=== PATIENT | male | born 1940 | race Caucasian/White ===

== ENCOUNTER 2019-12-06 02:40 | Emergency (ER) | payer MEDICARE, BC ==
[~2019-12-06] VITALS: Ht 190.5 cm; Wt 115.4 kg
[2019-12-06] MEDS ORDERED: IV NORMAL SALINE 500ML 500 ML IV ONE (03:00)
--- NOTE | 2019-12-06 03:01 | PHYS DOC ---
General Adult EDM: Chief Complaint: ABDOMINAL PAIN HPI: HPI: 79-year-old male presents with right upper quadrant abdominal pain. The patient tells me that he started out having a sharp and burning periumbilical pain that has migrated over to the right side of the abdomen. It is now an aching sensation and a 9 out of 10. He denies fall or trauma. He tells me that he has had "gas problems" in the past that have brought him into the hospital. He denies having bowel obstruction. He denies nausea, vomiting, chest pain, shortness of breath. No fever or chills. He has a history of hypertension and cardiac stent. Review of Systems: Review of Systems: Constitutional: Denies fever or chills Eyes: Denies change in visual acuity HENT: Denies nasal congestion or sore throat Respiratory: Denies cough or shortness of breath Cardiovascular: Denies chest pain or edema GI: Right upper quadrant abdominal pain. Denies nausea, vomiting, bloody stools or diarrhea : Denies dysuria Musculoskeletal: Denies back pain or joint pain Integument: Denies rash Neurologic: Denies headache, focal weakness or sensory changes Endocrine: Denies polyuria or polydipsia Lymphatic: Denies swollen glands Psychiatric: Denies depression or anxiety Heart Score: Risk Factors: Risk Factors: DM, Current or recent (<one month) smoker, HTN, HLP, family history of CAD, obesity. Risk Scores: Score 0 - 3: 2.5% MACE over next 6 weeks - Discharge Home Score 4 - 6: 20.3% MACE over next 6 weeks - Admit for Clinical Observation Score 7 - 10: 72.7% MACE over next 6 weeks - Early Invasive Strategies Current Medications: Current Meds: Current Medications Medications (Trade) Dose Ordered Sig/Cami Start Time Stop Time Status Last Admin Dose Admin Sodium Chloride 500 ml @ 0 mls/hr 1X ONCE 12/06/19 03:00 12/06/19 03:01 UNV Physical Exam: PE: Constitutional: Well developed, well nourished, obese, no acute distress, non- toxic appearance. [] HENT: Normocephalic, atraumatic, bilateral external ears normal, oropharynx moist, no oral exudates, nose normal. [] Eyes: PERRLA, EOMI, conjunctiva normal, no discharge. [] Neck: Normal range of motion, no tenderness, supple, no stridor. [] Cardiovascular: Heart rate regular rhythm, no murmur [] Lungs & Thorax: Bilateral breath sounds clear to auscultation [] Abdomen: Bowel sounds normal, soft, right sided tenderness, no masses, no pulsatile masses. [] Skin: Warm, dry, no erythema, no rash. [] Back: No tenderness, no CVA tenderness. [] Extremities: No tenderness, no cyanosis, no clubbing, ROM intact, no edema. [] Neurologic: Alert and oriented X 3, normal motor function, normal sensory function, no focal deficits noted. [] Psychologic: Affect normal, judgement normal, mood normal. [] EKG: EKG: [] Radiology/Procedures: Radiology/Procedures: [] Impressions: CT abdomen and pelvis with contrast PQRS statement: CT scans at this facility use dose reduction including either automated exposure control, iterative reconstructions, and /or weight based radiation dosing via mA and kV modification when appropriate to reduce radiation dose to as low as reasonably achievable. HISTORY: 75 mL Omnipaque 300 intravenous contrast. HISTORY: Right lower quadrant abdominal pain. Abdomen findings: Coronary calcified plaque. Lung bases unremarkable. Chronic L5 spondylolysis. Lumbar scoliosis and disc disease with bulky disc osteophytes and facet spurring spinal canal and neural foraminal stenoses. Right hepatic lobe 1 cm cyst density 5 units image 12. There appears be mild groundglass edema surrounding the gallbladder and mild edematous wall thickening. There may be small gallstones of the gallbladder neck with density present. Mild bilateral perinephric edema. Adrenals, pancreas, spleen unremarkable. Sigmoid diverticulosis. No bowel obstruction. Appendix not visualized may be surgically absent or obscured by surrounding bowel loops. No abdominal fluid or adenopathy. Subacute or chronic right anterior sixth, seventh and eighth rib fractures with incomplete healing. 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 Bladder, rectum and bones are unremarkable. Enlargement of the prostate transverse diameter 6 cm. No pelvic fluid or adenopathy. IMPRESSION: 1. Distention of the gallbladder with edema of the gallbladder wall and mild surrounding pericholecystic edema raising suspicion of cholecystitis. 2. Subacute or chronic right anterior sixth, seventh and eighth rib fractures with incomplete healing. 3. Other incidental findings as described above. Electronically signed by: Yves Deal MD (12/06/2019 4:15 AM) [facility] DICTATED AND SIGNED BY: YVES DEAL MD DATE: 12/06/19 041 CC: NEYMAR MARQUES MD; LISANDRO HERRERA DO ~ Course & Med Decision Making: Course & Med Decision Making Pertinent Labs and Imaging studies reviewed. (See chart for details) The patient's labs are unremarkable. He does have some elevated liver enzymes. CT scan shows possible acute cholecystitis. I have ordered blood cultures and will treat the patient with Zosyn. His penicillin allergy was 30 years ago and it was a rash. The patient has gotten 75 mcg of fentanyl and 1 mg of Dilaudid for his pain. I have also given him saline bolus and Zofran. I talk with the patient about being transferred to a facility with GI and surgery. He is in agreement with going to [facility]. I spoke with Dr. Lee who has accepted the patient for transfer and admission. He will go by ambulance. [] Dragon Disclaimer: [place] Disclaimer: This electronic medical record was generated, in whole or in part, using a voice recognition dictation system. Departure Departure: Impression: Primary Impression: Cholecystitis Disposition: [facility] Admitting Physician: Hubert Lee Condition: STABLE Referrals: NEYMAR MARQUES MD (PCP) LISANDRO HERRERA DO Dec 06, 2019 03:01
[2019-12-06] MEDS ORDERED: ONDANSETRON PF 4 MG/2 ML VIAL. IVP ONE (03:15)
[2019-12-06 03:25] LABS: BASO % 0 % (0-3); EOS % 0 % (0-3); HEMATOCRIT 40.3 % (39.0-53.0); HEMOGLOBIN 13.2 g/dL (13.0-17.5); LYMPH # 0.5 x10^3/uL (1.0-4.8); LYMPH % 6 % (24-48); MEAN CORPUSCULAR HEMOGLOBIN 30 pg (25-35); MEAN CORPUSCULAR HGB CONC 33 g/dL (31-37); MEAN CORPUSCULAR VOLUME 90 fL (79-100); MONO # 1.3 x10^3/uL (0.0-1.1); MONO % 14 % (0-9); NEUT # 7.3 x10^3uL (1.8-7.7); NEUT % 80 % (31-73); PLATELET COUNT 111 x10^3/uL (140-400); RED BLOOD COUNT 4.47 x10^6/uL (4.30-5.70); RED CELL DISTRIBUTION WIDTH 13.9 % (11.5-14.5); WHITE BLOOD COUNT 9.2 x10^3/uL (4.0-11.0)
[2019-12-06] MEDS ORDERED: CONTRAST GIVEN. MC PRN (03:30)
[2019-12-06] MEDS ORDERED: IOHEXOL 300 MG/ML 75 ML VIAL. IV ONE (03:30)
[2019-12-06 03:41] LABS: CREATININE 1.1 mg/dL (0.7-1.3); GFR 64.9; POTASSIUM 4.1 mmol/L (3.5-5.1)
[2019-12-06 04:00] LABS: ALBUMIN 3.4 g/dL (3.4-5.0); ALBUMIN/GLOBULIN RATIO 1.1 (1.0-1.7); TOTAL BILIRUBIN 1.2 mg/dL (0.2-1.0); TOTAL PROTEIN 6.6 g/dL (6.4-8.2)
--- NOTE | 2019-12-06 04:18 | RAD ---
CT abdomen and pelvis with contrast PQRS statement: CT scans at this facility use dose reduction including either automated exposure control, iterative reconstructions, and /or weight based radiation dosing via mA and kV modification when appropriate to reduce radiation dose to as low as reasonably achievable. HISTORY: 75 mL Omnipaque 300 intravenous contrast. HISTORY: Right lower quadrant abdominal pain. Abdomen findings: Coronary calcified plaque. Lung bases unremarkable. Chronic L5 spondylolysis. Lumbar scoliosis and disc disease with bulky disc osteophytes and facet spurring spinal canal and neural foraminal stenoses. Right hepatic lobe 1 cm cyst density 5 units image 12. There appears be mild groundglass edema surrounding the gallbladder and mild edematous wall thickening. There may be small gallstones of the gallbladder neck with density present. Mild bilateral perinephric edema. Adrenals, pancreas, spleen unremarkable. Sigmoid diverticulosis. No bowel obstruction. Appendix not visualized may be surgically absent or obscured by surrounding bowel loops. No abdominal fluid or adenopathy. Subacute or chronic right anterior sixth, seventh and eighth rib fractures with incomplete healing. 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 Bladder, rectum and bones are unremarkable. Enlargement of the prostate transverse diameter 6 cm. No pelvic fluid or adenopathy. IMPRESSION: 1. Distention of the gallbladder with edema of the gallbladder wall and mild surrounding pericholecystic edema raising suspicion of cholecystitis. 2. Subacute or chronic right anterior sixth, seventh and eighth rib fractures with incomplete healing. 3. Other incidental findings as described above. Electronically signed by: César Deal MD (12/06/2019 4:15 AM) [facility]
[2019-12-06] MEDS ORDERED: HYDROmorphone PF 1 MG/ML DISP.SYRIN IVP ONE (04:30)
[2019-12-06] MEDS ORDERED: PIPERACILLIN/TAZOBACTAM 3.375 GM in IV NORMAL SALINE 50ML 50 ML IV ONE (05:15)
[2019-12-06 05:40] LABS: AMORPHOUS SEDIMENT,UR PRESENT /HPF; BACTERIA,URINE 0 /HPF (0-FEW); BILIRUBIN,URINE NEG (NEG); CLARITY,URINE CLOUDY; COLOR,URINE YELLOW; GLUCOSE,URINE NEG (NEG); NITRITE,URINE NEG (NEG); RBC,URINE 0 /HPF (0-2); SQUAMOUS EPITHELIAL CELL,UR OCC /LPF; UROBILINOGEN,URINE 0.2 mg/dL (0.2 mg/dL); WBC,URINE OCC /HPF (0-4)
[2019-12-06] MEDS ORDERED: PIPERACILLIN/TAZOBACTAM 3.375 GM VIAL IV ONE (05:55)
[2019-12-06] MEDS ORDERED: IV NORMAL SALINE 50ML 50 ML ONE (05:55)
[2019-12-06 06:11] VITALS: BP 137/66
== END 2019-12-06 08:05 | disposition short-term general hospital (02) ==
LOC: ER 02:40
DX: K81.9 Cholecystitis, unspecified (principal)
CPT/HCPCS: 36415; 74177; 80053; 81001; 85025; 96365; 96375; 99285; J1170; J2405; J2543; J3010; J7040; Q9967; 96361

== ENCOUNTER → 2020-01-23 | Outpatient (CLI) | payer MEDICARE, BC ==
--- NOTE | 2020-01-23 17:38 | RAD ---
Examination: Bilateral digital diagnostic mammogram. INDICATION: 79-year-old man with bilateral breast pain. COMPARISON: None. TECHNIQUE: CC and MLO views of both breasts were obtained with 2-D technique and reviewed with computer-aided detection. FINDINGS: The breast parenchyma is almost entirely fatty replaced. There is no mass, architectural distortion or suspicious calcification in either breast. The nipple areloar complex, skin, and visualized axilla are unremarkable. IMPRESSION: Negative bilateral digital diagnostic mammogram. No evidence of malignancy and no specific cause for bilateral breast pain identified. Recommend clinical management and follow-up. BI-RADS Category 1 Negative Electronically signed by: Madisyn Lane MD (01/23/2020 5:35 PM) [id number]
== END ==
LOC: MAMMO 13:25
PROVIDERS: ATTEND Family Medicine
DX: N64.4 Mastodynia (principal)
CPT/HCPCS: 77066

== ENCOUNTER → 2020-09-05 | Day surgery (SDC) | payer MEDICARE, BC ==
[~2020-09-05] MED LIST: ACETAMINOPHEN 500 MG TABLET PO PRN; ASPI-630 PO; BALANCED SALT IRRIG SOLN NO.2 500 ML IO ONE; BENZONATATE 100 MG CAPSULE. PO PRN; BRIMONIDINE 0.2% OPHTH SOLUTION 5ML BOTTLE. OD ONE; CEFUROXIME OPHTH 4 MG/0.4 ML SYRINGE. OD ONE; CHONDROIT-SOD-HYALURONATE KIT. OD ONE; IBUPROFEN 200 MG TABLET PO PRN; IPRATRPIUM/ALBUTEROL 0.5/2.5MG 3 ML NEBU. NEB PRN; IV RINGERS SOLUTION,LACTATED 1,000 ML IV SCH; LIDO/EPI IN BSS OPHTH 2.7 ML SYRINGE. OD ONE; LOSA100T14 PO; MIDAZOLAM HCL PF 2 MG/2 ML VIAL. IV ONE; MIDAZOLAM HCL PF 2 MG/2 ML VIAL. ONE; MULT-445 PO; ONDANSETRON PF 4 MG/2 ML VIAL. IV PRN; PHENYLEPHRINE 10% OPHTH SOLUTION 5ML BOTTLE. OD PRN; POVIDONE-IODINE 5% OPHTH SOLUTION 30ML BOTTLE. OD ONE; POVIDONE-IODINE 5% OPHTH SOLUTION 30ML BOTTLE. OD PRN; PROPARACAINE 0.5% OPHTH SOLUTION 15ML BOTTLE. OD ONE; PROPARACAINE 0.5% OPHTH SOLUTION 15ML BOTTLE. OD PRN; fish oil PO; prednisoLONE ACETATE 1% OPHTH SUSPENSION 5ML BOTTLE. OD ONE
[2020-09-05] MEDS: PHENYLEPHRINE 2.5% OPHTH SOLUTION 2ML BOTTLE. OD SCH ×3 (07:36→07:46)
[2020-09-05] MEDS: TROPICAMIDE 1% OPHTH SOLUTION 15ML BOTTLE. OD SCH ×3 (07:37→07:46)
[2020-09-05] MEDS: KETOROLAC TROMETHAMINE 0.5% OPHTH SOLUTION BOTTLE. OD SCH ×2 (07:37→07:41)
[2020-09-05] MEDS: TOBRAMYCIN 0.3% OPHTH SOLUTION 5ML BOTTLE. OD SCH ×2 (07:37→07:41)
--- NOTE | 2020-09-05 09:06 | PDOC4 ---
SURGEON: Melvi Ybarra MD Date of Procedure: 09/05/20 PREOP Diagnosis Visually significant cataract: Right Eye OD POSTOP Diagnosis Same PROCEDURE: Phaco w/ posterior chamber IOL: Right Eye OD ANESTHESIA Deep forniceal periocular 2% Lidocaine jelly Vickie/retro bulbar block with 2% Lidocaine with 0.5% Marcaine DESCRIPTION OF PROCEDURE The risks, benefits, and alternatives were discussed with the patient who elected to proceed. Informed consent was obtained in writing and placed in the chart After anesthetizing the eye topically, the patient was taken to the operating room, and the operative eye was prepped and draped in the usual sterile fashion for ocular surgery. A wire lid speculum was placed. A 1-mm clear corneal paracentesis incision was created with the side-port blade at a position three o'clock hours clockwise from the temporal cornea. Then, 1% non-preserved Lidocaine with epinephrine was injected into the anterior chamber followed by viscoelastic. Cotton-tipped applicators were used to stabilize the globe, and a 2.4 mm keratome was used to create a self-sealing incision in clear cornea at the temporal limbus. The Utrata forceps were used to create a continuous curvilinear capsulorrhexis. Balanced saline solution was injected via cannula beneath the capsulorrhexis edge to hydrodissect the lens nucleus and cortex from the lens capsule. The phacoemulsification handpiece and a chopping instrument were then used to remove the lens nucleus. The remaining epinuclear material and cortex were removed with the irrigation/aspiration handpiece. Vi scoelastic was used to re-inflate the lens capsule, and the intraocular lens was injected directly into the capsular bag. The corneal wound edges were hydrated with balanced salt solution on a cannula and the irrigation/aspiration handpiece was used to extract the remaining viscoelastic. Cefuroxime 0.1mg/ml / Vigamox 0.5% was injected into the anterior chamber intracamerally. The wounds were inspected and found to be watertight at an appropriate intraocular pressure. Topical antibiotic drops were placed on the corneal surface. LRI: No If Yes, Number [] [place] [] Length [] degrees Depth [] microns Incision [place]: 180 Toric Lens [place] [] Patch/shield with Maxitrol/Tobradex/Erythromycin ointment: Yes No Co-managed patients/postop examination stable for co-management with referring doctor. EBL EBL: None SPECIMANS COLLECTED Specimens Collected: None MELVI YBARRA MD Sep 05, 2020 09:06
[2020-09-05 09:21] VITALS: BP 141/80
== END | disposition home or self-care (01) ==
LOC: SURG 07:24
PROVIDERS: ATTEND Ophthalmology
DX: H25.11 Age-related nuclear cataract, right eye (principal); I10 Essential (primary) hypertension; M19.90 Unspecified osteoarthritis, unspecified site; E78.00 Pure hypercholesterolemia, unspecified; M17.0 Bilateral primary osteoarthritis of knee; Z88.2 Allergy status to sulfonamides; Z88.0 Allergy status to penicillin; Z88.8 Allergy status to other drugs, medicaments and biological substances; Z72.89 Other problems related to lifestyle; Z98.890 Other specified postprocedural states; Z79.899 Other long term (current) drug therapy; Z79.82 Long term (current) use of aspirin
CPT/HCPCS: 66984; J2250; V2632

== ENCOUNTER → 2020-09-06 | Outpatient (CLI) | payer MEDICARE, BC ==
[2020-09-05 09:21] VITALS: BP 141/80
[~2020-09-06] MED LIST changes: -ACETAMINOPHEN 500 MG TABLET PO PRN; -BALANCED SALT IRRIG SOLN NO.2 500 ML IO ONE; -BENZONATATE 100 MG CAPSULE. PO PRN; -BRIMONIDINE 0.2% OPHTH SOLUTION 5ML BOTTLE. OD ONE; -CEFUROXIME OPHTH 4 MG/0.4 ML SYRINGE. OD ONE; -CHONDROIT-SOD-HYALURONATE KIT. OD ONE; -IBUPROFEN 200 MG TABLET PO PRN; -IPRATRPIUM/ALBUTEROL 0.5/2.5MG 3 ML NEBU. NEB PRN; -IV RINGERS SOLUTION,LACTATED 1,000 ML IV SCH; -LIDO/EPI IN BSS OPHTH 2.7 ML SYRINGE. OD ONE; -MIDAZOLAM HCL PF 2 MG/2 ML VIAL. IV ONE; -MIDAZOLAM HCL PF 2 MG/2 ML VIAL. ONE; -ONDANSETRON PF 4 MG/2 ML VIAL. IV PRN; -PHENYLEPHRINE 10% OPHTH SOLUTION 5ML BOTTLE. OD PRN; -POVIDONE-IODINE 5% OPHTH SOLUTION 30ML BOTTLE. OD ONE; -POVIDONE-IODINE 5% OPHTH SOLUTION 30ML BOTTLE. OD PRN; -PROPARACAINE 0.5% OPHTH SOLUTION 15ML BOTTLE. OD ONE; -PROPARACAINE 0.5% OPHTH SOLUTION 15ML BOTTLE. OD PRN; -prednisoLONE ACETATE 1% OPHTH SUSPENSION 5ML BOTTLE. OD ONE
--- NOTE | 2020-09-06 18:00 | RAD ---
EXAM: XR KNEE_AP BILAT STANDING 09/06/2020 10:35 AM CLINICAL INDICATION: Bilateral knee pain, osteoarthritis COMPARISON: Bilateral knee radiograph 09/14/2019 TECHNIQUE: AP view of the bilateral knees. FINDINGS: There is severe medial compartment narrowing bilaterally with subchondral sclerosis and re modeling of the articular surfaces, slightly greater on the right. Mild lateral compartment narrowing . There are large medial and lateral osteophytes. Mild genu varum. No acute fracture. 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 Electronically signed by: aLuren Macias MD (09/06/2020 5:58 PM) [id number]
== END ==
LOC: RAD 10:28
PROVIDERS: ATTEND Physician Assistant
DX: M17.0 Bilateral primary osteoarthritis of knee (principal)
CPT/HCPCS: 73565

== ENCOUNTER → 2020-09-19 | Day surgery (SDC) | payer MEDICARE, BC ==
[~2020-09-19] MED LIST changes: +ACETAMINOPHEN 500 MG TABLET PO PRN; +BALANCED SALT IRRIG SOLN NO.2 500 ML IO ONE; +BENZONATATE 100 MG CAPSULE. PO PRN; +BRIMONIDINE 0.2% OPHTH SOLUTION 5ML BOTTLE. OS ONE; +CEFUROXIME OPHTH 4 MG/0.4 ML SYRINGE. OS ONE; +CHONDROIT-SOD-HYALURONATE KIT. OS ONE; +IBUPROFEN 200 MG TABLET PO PRN; +IPRATRPIUM/ALBUTEROL 0.5/2.5MG 3 ML NEBU. NEB PRN; +IV RINGERS SOLUTION,LACTATED 1,000 ML IV SCH; +LIDO/EPI IN BSS OPHTH 2.7 ML SYRINGE. OS ONE; +LIDOCAINE 2% JELLY 6ML IN APPLICATOR. ONE; +MIDAZOLAM HCL PF 2 MG/2 ML VIAL. IV ONE; +MIDAZOLAM HCL PF 2 MG/2 ML VIAL. ONE; +ONDANSETRON PF 4 MG/2 ML VIAL. IV PRN; +PHENYLEPHRINE 10% OPHTH SOLUTION 5ML BOTTLE. OS PRN; +POVIDONE-IODINE 5% OPHTH SOLUTION 30ML BOTTLE. ONE; +POVIDONE-IODINE 5% OPHTH SOLUTION 30ML BOTTLE. OS ONE; +POVIDONE-IODINE 5% OPHTH SOLUTION 30ML BOTTLE. OS PRN; +PROPARACAINE 0.5% OPHTH SOLUTION 15ML BOTTLE. OS ONE; +PROPARACAINE 0.5% OPHTH SOLUTION 15ML BOTTLE. OS PRN; +prednisoLONE ACETATE 1% OPHTH SUSPENSION 5ML BOTTLE. OS ONE
[2020-09-19] MEDS: TROPICAMIDE 1% OPHTH SOLUTION 15ML BOTTLE. OS SCH ×3 (07:36→07:54)
[2020-09-19] MEDS: PHENYLEPHRINE 2.5% OPHTH SOLUTION 2ML BOTTLE. OS SCH ×3 (07:37→07:54)
[2020-09-19] MEDS: KETOROLAC TROMETHAMINE 0.5% OPHTH SOLUTION BOTTLE. OS SCH ×2 (07:37→07:46)
[2020-09-19] MEDS: TOBRAMYCIN 0.3% OPHTH SOLUTION 5ML BOTTLE. OS SCH ×2 (07:37→07:46)
--- NOTE | 2020-09-19 09:01 | PDOC4 ---
SURGEON: Melvi Ybarra MD Date of Procedure: 09/19/20 PREOP Diagnosis Visually significant cataract: Left Eye OS POSTOP Diagnosis Same PROCEDURE: Phaco w/ posterior chamber IOL: Left Eye OS ANESTHESIA Deep forniceal periocular 2% Lidocaine jelly Vickie/retro bulbar block with 2% Lidocaine with 0.5% Marcaine DESCRIPTION OF PROCEDURE The risks, benefits, and alternatives were discussed with the patient who elected to proceed. Informed consent was obtained in writing and placed in the chart After anesthetizing the eye topically, the patient was taken to the operating room, and the operative eye was prepped and draped in the usual sterile fashion for ocular surgery. A wire lid speculum was placed. A 1-mm clear corneal paracentesis incision was created with the side-port blade at a position three o'clock hours clockwise from the temporal cornea. Then, 1% non-preserved Lidocaine with epinephrine was injected into the anterior chamber followed by viscoelastic. Cotton-tipped applicators were used to stabilize the globe, and a 2.4 mm keratome was used to create a self-sealing incision in clear cornea at the temporal limbus. The Utrata forceps were used to create a continuous curvilinear capsulorrhexis. Balanced saline solution was injected via cannula beneath the capsulorrhexis edge to hydrodissect the lens nucleus and cortex from the lens capsule. The phacoemulsification handpiece and a chopping instrument were then used to remove the lens nucleus. The remaining epinuclear material and cortex were removed with the irrigation/aspiration handpiece. Vis coelastic was used to re-inflate the lens capsule, and the intraocular lens was injected directly into the capsular bag. The corneal wound edges were hydrated with balanced salt solution on a cannula and the irrigation/aspiration handpiece was used to extract the remaining viscoelastic. Cefuroxime 0.1mg/ml / Vigamox 0.5% was injected into the anterior chamber intracamerally. The wounds were inspected and found to be watertight at an appropriate intraocular pressure. Topical antibiotic drops were placed on the corneal surface. LRI: No If Yes, Number [] [place] [] Length [] degrees Depth [] microns Incision [place]: 180 Toric Lens [place] [] Patch/shield with Maxitrol/Tobradex/Erythromycin ointment: Yes No Co-managed patients/postop examination stable for co-management with referring doctor. EBL EBL: None SPECIMANS COLLECTED Specimens Collected: None MELVI YBARRA MD Sep 19, 2020 09:01
[2020-09-19 09:13] VITALS: BP 148/79
== END | disposition home or self-care (01) ==
LOC: SURG 07:24
PROVIDERS: ATTEND Ophthalmology
DX: H25.12 Age-related nuclear cataract, left eye (principal); I10 Essential (primary) hypertension; M19.90 Unspecified osteoarthritis, unspecified site; E78.00 Pure hypercholesterolemia, unspecified; Z88.2 Allergy status to sulfonamides; Z88.0 Allergy status to penicillin; Z79.899 Other long term (current) drug therapy; Z98.890 Other specified postprocedural states; Z79.82 Long term (current) use of aspirin
CPT/HCPCS: 66984; J2250; V2632

== ENCOUNTER 2021-05-11 10:01 | Emergency (ER) | payer MEDICARE, BC ==
[~2021-05-11] VITALS: Ht 190.5 cm; Wt 115.4 kg
[~2021-05-11 10:01] MED LIST changes: -ACETAMINOPHEN 500 MG TABLET PO PRN; -BALANCED SALT IRRIG SOLN NO.2 500 ML IO ONE; -BENZONATATE 100 MG CAPSULE. PO PRN; -BRIMONIDINE 0.2% OPHTH SOLUTION 5ML BOTTLE. OS ONE; -CEFUROXIME OPHTH 4 MG/0.4 ML SYRINGE. OS ONE; -CHONDROIT-SOD-HYALURONATE KIT. OS ONE; -IBUPROFEN 200 MG TABLET PO PRN; -IPRATRPIUM/ALBUTEROL 0.5/2.5MG 3 ML NEBU. NEB PRN; -IV RINGERS SOLUTION,LACTATED 1,000 ML IV SCH; -LIDO/EPI IN BSS OPHTH 2.7 ML SYRINGE. OS ONE; -LIDOCAINE 2% JELLY 6ML IN APPLICATOR. ONE; -MIDAZOLAM HCL PF 2 MG/2 ML VIAL. IV ONE; -MIDAZOLAM HCL PF 2 MG/2 ML VIAL. ONE; -ONDANSETRON PF 4 MG/2 ML VIAL. IV PRN; -PHENYLEPHRINE 10% OPHTH SOLUTION 5ML BOTTLE. OS PRN; -POVIDONE-IODINE 5% OPHTH SOLUTION 30ML BOTTLE. ONE; -POVIDONE-IODINE 5% OPHTH SOLUTION 30ML BOTTLE. OS ONE; -POVIDONE-IODINE 5% OPHTH SOLUTION 30ML BOTTLE. OS PRN; -PROPARACAINE 0.5% OPHTH SOLUTION 15ML BOTTLE. OS ONE; -PROPARACAINE 0.5% OPHTH SOLUTION 15ML BOTTLE. OS PRN; -prednisoLONE ACETATE 1% OPHTH SUSPENSION 5ML BOTTLE. OS ONE
--- NOTE | 2021-05-11 10:45 | PHYS DOC ---
Past History Past Medical History: GERD, Hypertension, Other Additional Past Medical Histor: ataxia (SHANNAN NAPIER APRN) Past Surgical History: Cholecystectomy Additional Past Surgical Histo: stent x1 (SHANNAN NAPIER APRN) Alcohol Use: None (SHANNAN NAPIER APRN) General Adult EDM: Chief Complaint: FOOT INJURY PAIN HPI: HPI: Patient is a 80-year-old male who presents with right foot and right knee pain after a fall. Patient states that he has ataxia and uses a walker at home. Patient states he lost his balance and started to fall. Patient reports he caught himself. Denies hitting his head. Patient's been taking 800 mg ibuprofen 3 times a day which is helped with the pain. Pain exacerbated by walking or bearing weight. History of hypertension, ataxia, GERD. (SHANNAN NAPIER APRN) Review of Systems: Review of Systems: ROS At least 10 ROS systems have been reviewed and are negative except as documented in the HPI. General: Negative except as outlined in HPI above. Skin: Negative except as outlined in HPI above. HEENT: Negative except as outlined in HPI above. Neck: Negative except as outlined in HPI above. Respiratory: Negative except as outlined in HPI above.. Cardiovascular: Negative except as outlined in HPI above. Abdomen: Negative except as outlined in HPI above. : Negative except as outlined in HPI above. Back/MSK: Negative except as outlined in HPI above. Neuro: Negative except as outlined in HPI above. Psych: Negative except as outlined in HPI above. (SHANNAN NAPIER APRN) Allergies: Allergies: Allergies Coded Allergies Type Severity Reaction Last Updated Verified Penicillins Allergy Intermediate hives 08/28/20 Yes Sulfa (Sulfonamide Antibiotics) Allergy Intermediate hives 08/28/20 Yes hydrocodone Allergy Unknown 12/06/19 Yes (SHANNAN NAPIER APRN) Physical Exam: PE: Constitutional: Well developed, well nourished, no acute distress, non-toxic rose mary earance. HENT: Normocephalic, atraumatic, bilateral external ears normal, oropharynx moist Eyes: PERRLA, EOMI, conjunctiva normal, no discharge. [] Neck: Normal range of motion, no tenderness, supple Cardiovascular:Heart rate regular rhythm, no murmur [] Lungs & Thorax: Bilateral breath sounds clear to auscultation [] Abdomen: Bowel sounds normal, soft, no tenderness, no masses Skin: Bruising to second and third toe of right foot, mild swelling, pain is located to lateral side of foot Back: No tenderness, no CVA tenderness. [] Extremities: Right knee and right foot tenderness, ROM intact, mild swelling, pedal pulses intact Neurologic: Alert and oriented X 3, normal motor function, normal sensory function, no focal deficits noted. [] Psychologic: Affect normal, judgement normal, mood normal. [] (SHANNAN NAPIER APRN) Current Patient Data: Vital Signs: Vital Signs Date Time Temp Pulse Resp B/P (MAP) Pulse Ox O2 Delivery O2 Flow Rate FiO2 05/11/21 10:10 98.3 99 16 141/75 (97) 96 Room Air (SHANNAN NAPIER APRN) EKG: EKG: [] (SHANNAN NAPIER APRN) Radiology/Procedures: Radiology/Procedures: []EXAM: Right knee, 3 views. HISTORY: Fall. Pain. COMPARISON: 09/06/2020 FINDINGS: 3 views of the right knee are obtained. There is medial compartment joint space narrowing and moderate medial compartment predominant truck vertebral spurring. There is medial and lateral compartment chondrocalcinosis. There is trace joint fluid. There is no fracture, dislocation or subluxation. There are small benign bone islands. IMPRESSION: Moderate medial compartment predominant tricompartmental osteoarthritis of the right knee with trace joint fluid. Electronically signed by: Meg Burks MD (05/11/2021 11:05 AM) [facility] EXAM: Right foot, 3 views. HISTORY: Fall. COMPARISON: None. FINDINGS: 3 views of the right foot are obtained. There is severe first metatarsal phalangeal joint space narrowing with subchondral sclerosis, subchondral cyst formation and marginal spurring. There is lucency at the base of the second proximal phalanx, likely due to a nondisplaced fracture. There is also a mildly displaced fracture the base of the second metatarsal and likely the base of the first metatarsal. There is mild tibiotalar joint spurring. There is a small amount of dense calcification or ossification along the plantar fascia. IMPRESSION: 1. Mildly displaced fracture involving the base of the second metatarsal and likely base of the first metatarsal. 2. Suspected nondisplaced fracture involving the base of the second proximal phalanx. 3. Severe first metatarsal phalangeal joint osteoarthritis. 4. Small amount of dense calcification or ossification along the plantar fascia. Electronically signed by: Meg Burks MD (05/11/2021 11:13 AM) [facility] (SHANNAN NAPIER APRN) Heart Score: C/O Chest Pain: No Risk Factors: Risk Factors: DM, Current or recent (<one month) smoker, HTN, HLP, family history of CAD, obesity. Risk Scores: Score 0 - 3: 2.5% MACE over next 6 weeks - Discharge Home Score 4 - 6: 20.3% MACE over next 6 weeks - Admit for Clinical Observation Score 7 - 10: 72.7% MACE over next 6 weeks - Early Invasive Strategies (SHANNAN NAPIER APRN) Course & Med Decision Making: Course & Med Decision Making Pertinent Labs and Imaging studies reviewed. (See chart for details) [] 80-year-old male presents with right foot and knee pain after a fall. Patient reports he caught himself before hitting the ground. Patient is unable to bear weight. Range of motion and sensation are intact. Pedal pulses intact. Mild swelling noted to the area. Right second and third toes have bruising. Work-up in ER consisted of right knee x-ray, right foot x-ray to rule out frac ture. Foot x-ray shows mildly displaced fracture involving the base of the second metatarsal and likely base of the first metatarsal. Suspected nondisplaced fracture involving the base of the second proximal phalanx. Knee x-ray is negative for fracture. Zack tape first and second metatarsal. Instructed patient to continue to wear postop shoe. Bradley wrap placed on right knee to help with pain. Educated on RICE. Advised patient to follow-up with PCP in the next 5 to 7 days if symptoms do not improve. Patient may need possible repeat imaging. Ibuprofen and Tylenol at home for discomfort. (SHANNAN NAPIER APRN) Course & Med Decision Making I did not see or assess this patient. While reviewing this note, there is concern for Lisfranc injury. I then discussed with my midlevel who reports patient does not have any plantar ecchymosis. I left voicemail on patients' home number [phone] and his wifes' [phone]. returned my phone call within 15 minutes and had patient speakerphone. 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 X-ray concerning for possible Lisfranc injury, mildly displaced which requires Ortho consultation, splinting and crutches. Patient unable to bear weight on the foot, not bear weight with his toes. Has no plantar ecchymosis. I spoke to my midlevel who reported patient had bruising to the dorsal aspect of his foot. I explained to and patient it is my recommendation to return to the emergency department to have repeat imaging and to discuss case with orthopedic surgery and podiatry.-Patient refused return to the emergency department, "it's too late, we want to sleep." She stated patient is known by Dr. Erickson and Dr. Gonzalez and was assessed for total knee replacement-was not recommended given patient's ataxia. Patient and understand concern for unstable arch fracture that could result in pain and inability to ambulate. I educated patient may benefit more from podiatry evaluation and some orthopedics don't manage this type of injury. I was unable to convince like patient to return to emergency department. wrote down "lisfranc injury" and stated she would call orthopedic surgery in the morning. ([facility],CLINTON Sorto DO) Sintia Disclaimer: Sintia Disclaimer: This electronic medical record was generated, in whole or in part, using a voice recognition dictation system. (SHANNAN NAPIER APRN) Departure Departure: Impression: Primary Impression: Metatarsal fracture Qualified Codes: S92.311A - Displaced fracture of first metatarsal bone, right foot, initial encounter for closed fracture Disposition: HOME / SELF CARE / HOMELESS Condition: STABLE Referrals: BROCKERT,NEYMAR G MD (PCP) Patient Instructions: RICE - Routine Care for Injuries, [id number] Additional Instructions: You are seen the emergency room after a fall. X-ray of your right foot and knee were obtained. Knee x-ray is unremarkable. Bradley wrap was applied to your knee. X-ray of your foot shows first and second toe fracture. You can continue wearing your postop shoe. Rest, use ice to the area, elevate to help with pain and swelling. Follow-up with PCP in the next 5 to 7 days for possible repeat imaging if pain is not improving. Continue taking ibuprofen for discomfort. Return emergency room with worsening symptoms or concerns. EMERGENCY DEPARTMENT GENERAL DISCHARGE INSTRUCTIONS Thank you for coming to [facility] (ED) today and trusting us with you care. We trust that you had a positivie experience in our Emergency Department. If you wish to speak to the department management, you may call the director at [phone]. YOUR FOLLOW UP INSTRUCTIONS ARE FOLLOWS: 1. Do you have a private Doctor? If you do not have a private doctor, please ask for a resource list of physicians or clinics that may be able to assist you with follow up care. 2. The Emergency Physician has interpreted your x-rays. The X-Ray specialist will also review them. If there is a change in the findings, you will be notified in 48 hours when at all possible. 3. A lab test or culture has been done, your results will be reviewed and you will be notified if you need a change in treatment. ADDITIONAL INSTRUCTIONS AND INFORMATION: 1. Your care today has been supervised by a physician who is specially trained in emergency care. Many problems require more than one evaluation for a complete diagnosis and treatment. We recommend that you schedule your follow up appointment as recommended to ensure complete treatment of you illness or injury. If you are unable to obtain follow up care and continue to have a problem, or if your condition worsens, we recommend that you return to the ED. 2. We are not able to safely determine your condition over the phone nor are we able to give sound medical advice over the phone. For these safety reasons, if you call for medical advice we will ask you to come to the ED for further evaluation. 3. If you have any questions regarding these discharge instructions please call the ED at [phone]. SAFETY INFORMATION: In the interest of safety, wellness, and injury prevention; we encourage you to wear your sealbelt, if you smoke; quite smoking, and we encourage family to use a protective helmet for bicycling and other sporting events that present an increased risk for head injury. IF YOUR SYMPTOMS WORSEN OR NEW SYMPTOMS DEVELOP, OR YOU HAVE CONCERNS ABOUT YOUR CONDITION; OR IF YOUR CONDITION WORSENS WHILE YOU ARE WAITING FOR YOUR FOLLOW UP APPOINTMENT; EITHER CONTACT YOUR PRIMARY CARE DOCTOR, THE PHYSICIAN WHOSE NAME AND NUMBER YOU WERE GIVEN, OR RETURN TO THE ED IMMEDIATELY. SHANNAN NAPIER APRN May 11, 2021 10:45 CLINTON CHAVEZ DO May 13, 2021 20:48
--- NOTE | 2021-05-11 11:08 | RAD ---
EXAM: Right knee, 3 views. HISTORY: Fall. Pain. COMPARISON: 09/06/2020 FINDINGS: 3 views of the right knee are obtained. There is medial compartment joint space narrowing a nd moderate medial compartment predominant truck vertebral spurring. There is medial and lateral comp artment chondrocalcinosis. There is trace joint fluid. There is no fracture, dislocation or subluxati on. There are small benign bone islands. IMPRESSION: Moderate medial compartment predominant tricompartmental osteoarthritis of the right knee with trace joint fluid. Electronically signed by: Meg Burks MD (05/11/2021 11:05 AM) [facility]
--- NOTE | 2021-05-11 11:15 | RAD ---
EXAM: Right foot, 3 views. HISTORY: Fall. COMPARISON: None. FINDINGS: 3 views of the right foot are obtained. There is severe first metatarsal phalangeal joint s pace narrowing with subchondral sclerosis, subchondral cyst formation and marginal spurring. There is lucency at the base of the second proximal phalanx, likely due to a nondisplaced fracture. There is also a mildly displaced fracture the base of the second metatarsal and likely the base of the first m etatarsal. There is mild tibiotalar joint spurring. There is a small amount of dense calcification or ossification along the plantar fascia. IMPRESSION: 1. Mildly displaced fracture involving the base of the second metatarsal and likely base of the first metatarsal. 2. Suspected nondisplaced fracture involving the base of the second proximal phalanx. 3. Severe first metatarsal phalangeal joint osteoarthritis. 4. Small amount of dense calcification or ossification along the plantar fascia. Electronically signed by: Meg Burks MD (05/11/2021 11:13 AM) [facility]
[2021-05-11 12:19] VITALS: BP 138/76
== END 2021-05-11 12:20 | disposition home or self-care (01) ==
LOC: ER 10:01
DX: S92.321A Displaced fracture of second metatarsal bone, right foot, initial encounter for closed fracture (principal); M25.561 Pain in right knee; K21.9 Gastro-esophageal reflux disease without esophagitis; I10 Essential (primary) hypertension; Z88.0 Allergy status to penicillin; Z88.2 Allergy status to sulfonamides; Z88.5 Allergy status to narcotic agent; W18.39XA Other fall on same level, initial encounter; Y93.89 Activity, other specified; Y92.89 Other specified places as the place of occurrence of the external cause; Y99.8 Other external cause status
CPT/HCPCS: 73562; 73630; 99284

== ENCOUNTER → 2021-05-21 | Outpatient (CLI) | payer MEDICARE, BC ==
[2021-05-11 12:19] VITALS: BP 138/76
--- NOTE | 2021-05-22 09:17 | RAD ---
Exam performed: Right foot 3 views. HISTORY: Right foot pain, status post fall. DATE OF SERVICE: 05/21/2021. COMPARISON: X-ray right foot from 05/11/2021 3 views right foot findings: Interval mild displacement of a previously seen fracture base of second proximal phalanx. Fracture ba se of second metatarsal. There are degenerative changes about the first metatarsophalangeal joint. Th e remainder alignment appears preserved. Linear calcification along the plantar fascia redemonstrated . There is diffuse soft tissue swelling. No foreign body. IMPRESSION: Interval displacement of previously seen fracture second proximal phalanx. Fracture base of second metatarsal. Electronically signed by: Nanci Ragsdale MD (05/22/2021 9:15 AM) [facility]
== END ==
LOC: RAD 16:41
PROVIDERS: ATTEND Family Medicine
DX: S92.321D Displaced fracture of second metatarsal bone, right foot, subsequent encounter for fracture with routine healing (principal); M19.071 Primary osteoarthritis, right ankle and foot; M79.89 Other specified soft tissue disorders; X58.XXXD Exposure to other specified factors, subsequent encounter
CPT/HCPCS: 73630